=== PATIENT | male | born 1975 | race African-American/Black ===

== ENCOUNTER 2022-04-23 19:31 | Inpatient (IN) ==
[2022-04-23] MEDS ORDERED: SODIUM CHLORIDE 0.9% 1,000 ML IV STA (20:20)
[2022-04-23 20:28] LABS: Basophils # 0.1 10*3/uL (0.0-0.2); Basophils % 0.8 % (0.0-0.8); Eosinophils # 0.1 10*3/uL (0.0-0.87); Hematocrit 29.9 VOL% (42.0-52.0); Hemoglobin 9.5 GM/DL (14.0-18.0); Immature Granulocytes % 0.3 %; Immature Granulocytes Absolute 0.02 #; Lymphocytes # 3.4 10*3/uL (1.4-4.0); Lymphocytes % 45.8 % (21.2-54.2); Mean Corpuscular HGB Conc 31.8 GM/DL (32-36); Mean Corpuscular Volume 88.7 FL (87-102); Mean Platelet Volume 10.9 FL (9.6-12.0); Monocytes # 0.6 10*3/uL (0.11-0.8); Monocytes % 7.7 % (1.7-12.7); Neutrophils % 44.4 % (38.7-73.9); Platelet Count 181 T/CUMM (130-400); Red Blood Count 3.37 MC/CUMM (3.8-5.5); Red Cell Distribution Width 15.1 % (9.3-17.3); White Blood Count 7.3 T/CUMM (4-12)
[2022-04-23 20:40] LABS: Alanine Aminotransferase 11 U/L (16-61); Albumin 2.9 G/DL (3.4-5.0); Alkaline Phosphatase 37 U/L (45-117); Amylase 37 U/L (25-115); Aspartate Amino Transferase 12 U/L (0-37); Bilirubin,Total < 0.39 MG/DL (0.20-1.00); Blood Urea Nitrogen 18 MG/DL (7-18); Calcium 8.3 MG/DL (8.5-10.1); Carbon Dioxide 25 MMOL/L (21-32); Chloride 108 MMOL/L (98-107); Glucose 134 MG/DL (74-106); Osmolality,Calculated 280.5 MOS/KG (273-304); Potassium 3.9 MMOL/L (3.5-5.1); Sodium 139 MMOL/L (136-145); Total Protein 6.2 G/DL (6.4-8.2)
[2022-04-23 20:55] LABS: Eosinophils 2 % (0-10); Lymphocytes 48 % (20-55); Total Cells Counted 100
[2022-04-23 20:56] LABS: Burr Cells Slight
[2022-04-23 20:57] LABS: Ovalocytes Slight; Platelet Estimate Normal
[2022-04-23 21:10] LABS: PT Patient Result 11.4 SECS (10.1-12.1); Partial Thromboplastin Time 26.4 SECS (23.7-32.9)
[2022-04-23] MEDS ORDERED: PANTOPRAZOLE 40 MG VIAL IV STA (22:55)
[2022-04-23] MEDS ORDERED: ONDANSETRON 4 MG/2 ML VIAL IV STA (22:55)
[2022-04-23] MEDS ORDERED: diphenhydrAMINE CAP 25 MG CAPSULE PO PRN (23:17)
[2022-04-23] MEDS ORDERED: GLUCAGON 1 MG VIAL IM PRN (23:17)
[2022-04-23] MEDS ORDERED: NICOTINE 21 MG/24 HR PATCH TRANSDERM PRN (23:17)
[2022-04-23] MEDS ORDERED: ONDANSETRON 4 MG/2 ML VIAL IV PRN (23:17)
[2022-04-23] MEDS ORDERED: DEXTROSE 10% 250 ML BAG IV PRN (23:17)
[2022-04-23] MEDS ORDERED: guaiFENesin/DM ER 600-30 MG TABLET PO PRN (23:17)
[2022-04-23 23:33] LABS: Hematocrit 27.6 VOL% (42.0-52.0); Hemoglobin 8.6 GM/DL (14.0-18.0)
[2022-04-24] MEDS ORDERED: SODIUM CHLORIDE 0.9% 1,000 ML IV PRN (00:17)
[2022-04-24] MEDS: PANTOPRAZOLE INJ 200 MG in SODIUM CHLORIDE 0.9% 250 ML IV SCH (06:02)
[2022-04-24] MEDS: SODIUM CHLORIDE 0.9% 1,000 ML IV SCH ×2 (06:02→08:47)
[2022-04-24 07:48] LABS: Basophils % 0.4 % (0.0-0.8); Eosinophils # 0.1 10*3/uL (0.0-0.87); Eosinophils % 0.8 % (0.00-10.9); Hematocrit 30.2 VOL% (42.0-52.0); Hemoglobin 9.7 GM/DL (14.0-18.0); Immature Granulocytes % 0.2 %; Immature Granulocytes Absolute 0.02 #; Lymphocytes # 2.9 10*3/uL (1.4-4.0); Lymphocytes % 30.5 % (21.2-54.2); Mean Corpuscular HGB Conc 32.1 GM/DL (32-36); Mean Corpuscular Volume 87.5 FL (87-102); Mean Platelet Volume 10.6 FL (9.6-12.0); Monocytes # 0.7 10*3/uL (0.11-0.8); Monocytes % 7.6 % (1.7-12.7); Neutrophils % 60.5 % (38.7-73.9); Platelet Count 157 T/CUMM (130-400); Red Blood Count 3.45 MC/CUMM (3.8-5.5); Red Cell Distribution Width 14.9 % (9.3-17.3); White Blood Count 9.6 T/CUMM (4-12)
[2022-04-24 08:17] LABS: Albumin 2.7 G/DL (3.4-5.0); Bilirubin,Total 0.4 MG/DL (0.20-1.00); Calcium 8.6 MG/DL (8.5-10.1); Osmolality,Calculated 283.3 MOS/KG (273-304); Potassium 4.2 MMOL/L (3.5-5.1); Total Protein 6.2 G/DL (6.4-8.2)
[2022-04-24] MEDS: MULTIVITAMIN (CENTRUM) TABLET PO SCH (08:47)
[2022-04-24] MEDS: FOLIC ACID 1 MG TABLET PO SCH (08:47)
[2022-04-24] MEDS: THIAMINE 100 MG TABLET PO SCH (08:47)
[2022-04-25] MEDS: SODIUM CHLORIDE 0.9% 1,000 ML IV SCH ×2 (00:36→16:07)
[2022-04-25] MEDS: PANTOPRAZOLE INJ 200 MG in SODIUM CHLORIDE 0.9% 250 ML IV SCH (01:42)
[2022-04-25 05:26] LABS: Basophils # 0.1 10*3/uL (0.0-0.2); Basophils % 0.7 % (0.0-0.8); Eosinophils # 0.1 10*3/uL (0.0-0.87); Eosinophils % 1.8 % (0.00-10.9); Hematocrit 28.7 VOL% (42.0-52.0); Hemoglobin 9.2 GM/DL (14.0-18.0); Immature Granulocytes % 0.3 %; Immature Granulocytes Absolute 0.02 #; Lymphocytes # 2.8 10*3/uL (1.4-4.0); Lymphocytes % 40.6 % (21.2-54.2); Mean Corpuscular HGB Conc 32.1 GM/DL (32-36); Mean Corpuscular Volume 87.8 FL (87-102); Mean Platelet Volume 11.3 FL (9.6-12.0); Monocytes # 0.6 10*3/uL (0.11-0.8); Monocytes % 8.4 % (1.7-12.7); Neutrophils % 48.2 % (38.7-73.9); Platelet Count 156 T/CUMM (130-400); Red Blood Count 3.27 MC/CUMM (3.8-5.5); Red Cell Distribution Width 15.2 % (9.3-17.3); White Blood Count 6.8 T/CUMM (4-12)
[2022-04-25 05:51] LABS: Calcium 8.6 MG/DL (8.5-10.1); Osmolality,Calculated 281.3 MOS/KG (273-304); Potassium 3.9 MMOL/L (3.5-5.1)
[2022-04-25] MEDS ORDERED: LACTATED RINGERS 1,000 ML IV SCH (08:00)
[2022-04-25] MEDS: MULTIVITAMIN (CENTRUM) TABLET PO SCH (08:15)
[2022-04-25] MEDS: FOLIC ACID 1 MG TABLET PO SCH (08:15)
[2022-04-25] MEDS: THIAMINE 100 MG TABLET PO SCH (08:15)
[2022-04-25] MEDS: MORPHINE 2 MG/1 ML SYRINGE IV PRN ×2 (08:45→21:58)
[2022-04-25] MEDS ORDERED: LORazepam 1 MG TABLET PO PRN (11:51)
[2022-04-25] MEDS ORDERED: hydrALAZINE 20 MG/1 ML VIAL IV PRN (11:57)
[2022-04-25] MEDS ORDERED: propofoL 200 MG/20 ML VIAL IV ONE ×2 (12:21→12:47)
[2022-04-25] MEDS ORDERED: LIDOCAINE 2% 5 ML VIAL ONE (12:21)
[2022-04-25] MEDS: hydroCHLOROthiazide 12.5 MG CAPSULE PO SCH (15:06)
[2022-04-25] MEDS: amLODIPine 10 MG TABLET PO SCH (15:06)
[2022-04-25] MEDS: lisinopriL 10 MG TABLET PO SCH (17:58)
[2022-04-26] MEDS: PANTOPRAZOLE INJ 200 MG in SODIUM CHLORIDE 0.9% 250 ML IV SCH (00:29)
[2022-04-26] MEDS: SODIUM CHLORIDE 0.9% 1,000 ML IV SCH (01:07)
[2022-04-26 06:31] LABS: Basophils # 0.1 10*3/uL (0.0-0.2); Basophils % 0.9 % (0.0-0.8); Eosinophils # 0.3 10*3/uL (0.0-0.87); Eosinophils % 3.6 % (0.00-10.9); Hematocrit 28.3 VOL% (42.0-52.0); Immature Granulocytes % 0.2 %; Immature Granulocytes Absolute 0.02 #; Lymphocytes # 2.9 10*3/uL (1.4-4.0); Lymphocytes % 35.5 % (21.2-54.2); Mean Corpuscular HGB Conc 31.8 GM/DL (32-36); Mean Corpuscular Volume 87.9 FL (87-102); Mean Platelet Volume 11.6 FL (9.6-12.0); Monocytes # 0.7 10*3/uL (0.11-0.8); Monocytes % 8.1 % (1.7-12.7); Neutrophils % 51.7 % (38.7-73.9); Platelet Count 160 T/CUMM (130-400); Red Blood Count 3.22 MC/CUMM (3.8-5.5); Red Cell Distribution Width 14.8 % (9.3-17.3)
[2022-04-26 06:49] LABS: Calcium 8.7 MG/DL (8.5-10.1); Osmolality,Calculated 275.5 MOS/KG (273-304); Potassium 3.5 MMOL/L (3.5-5.1)
[2022-04-26 08:26] VITALS: BP 152/75
[2022-04-26] MEDS: MULTIVITAMIN (CENTRUM) TABLET PO SCH (08:43)
[2022-04-26] MEDS: lisinopriL 10 MG TABLET PO SCH (08:43)
[2022-04-26] MEDS: amLODIPine 10 MG TABLET PO SCH (08:43)
[2022-04-26] MEDS: THIAMINE 100 MG TABLET PO SCH (08:43)
[2022-04-26] MEDS: FOLIC ACID 1 MG TABLET PO SCH (08:43)
[2022-04-26] MEDS: hydroCHLOROthiazide 12.5 MG CAPSULE PO SCH (08:43)
[2022-04-26] MEDS ORDERED: PANTOPRAZOLE 40 MG VIAL IV SCH (09:00)
== END 2022-04-26 10:50 | disposition home or self-care (01) | DRG 378 ==
LOC: N.ED 19:31 → SUATTDRO 23:17 → N.EDINP 23:17 → N.TELEN 04-24 04:35
PROVIDERS: ADMIT Internal Medicine; ATTEND Hospitalist